=== PATIENT | male | born 1980 | race Caucasian/White ===

== ENCOUNTER 2019-05-31 19:20 | Emergency (ER) | payer OTHER ==
[~2019-05-31] VITALS: Ht 177.8 cm; Wt 107.9 kg
[2019-05-31 19:24] VITALS: BP 145/69; PULSE 88; RESP 20; Ht 177.8 cm; Wt 107.9 kg
[2019-05-31] MEDS ORDERED: LORA1TAB PO (20:11)
--- NOTE | 2019-05-31 21:11 | ERD ---
ER Documentation Chief Complaint Chief Complaint Pt reports hx of PTSD and meds are not working, Pt is HPI 38-year-old male with history of PTSD and anxiety presents for anxiety symptoms x3 days. States that he is getting frequent episodes of shortness of breath and feeling anxious which makes it difficult from sleep and work. Denies current chest pain. Denies abdominal pain, nausea, vomiting. He is on medication for his anxiety and PTSD however she does not know the name of the medications. He does have a psychiatrist that he goes through via the [place] but he does not have an appointment upcoming. No other modifying factors noted, no other treatments tried at home. Patient denies any suicidal or homicidal ideation. ROS All systems reviewed and are negative except as per history of present illness. Medications Home Meds Active Scripts Lorazepam* (Lorazepam*) 1 Mg Tablet, 1 MG PO Q8H PRN for ANXIETY, #10 TAB Prov:KEO GRANT DO 05/31/19 Allergies Allergies: Coded Allergies: No Known Allergy (Unverified , 05/31/19) PMhx/Soc History of GERD Hx Psychiatric Problems: Yes (PTSD and anxiety and depression) Hx Alcohol Use: Yes (Moderate use) Hx Substance Use: No Hx Tobacco Use: No Physical Exam Vitals Vital Signs Date Temp Pulse Resp B/P (MAP) Pulse Ox O2 O2 Flow FiO2 Time Delivery Rate 05/31/19 99.4 88 20 145/69 98 19:24 (94) Physical Exam Const: No acute distress Head: Atraumatic Eyes: Normal Conjunctiva ENT: Normal External Ears, Nose and Mouth. Neck: Full range of motion. No meningismus. Resp: Clear to auscultation bilaterally Cardio: Regular rate and rhythm, no murmurs Abd: Soft, non tender, non distended. Normal bowel sounds Skin: No petechiae or rashes Back: No midline or flank tenderness Ext: No cyanosis, or edema Neur: Awake and alert Psych: Normal Mood and Affect Procedures/MDM Medical Decision Making: Patient appeared well on physical exam. Physical examination normal ED course: Denies homicidal suicidal ideation Patient advised that you need to follow with his psychiatrist. Patient given a short course of Ativan low-dose short course Low suspicion for pulmonary embolism, aortic dissection, pneumothorax, ACS Patient advised to follow up with PCP in 1-2 days. Patient advised to return to ED for new or worsening symptoms. Patient stable on discharge from the ED. Disclaimer: Inadvertent spelling and grammatical errors are likely due to EHR/dictation software use and do not reflect on the overall quality of patient care. Also, please note that the electronic time recorded on this note does not necessarily reflect the actual time of the patient encounter. Departure Diagnosis: Primary Impression: Anxiety attack Condition: Fair Patient Instructions: Anxiety Reaction, Panic Attack Referrals: [facility] YOU HAVE RECEIVED A MEDICAL SCREENING EXAM AND THE RESULTS INDICATE THAT YOU DO NOT HAVE A CONDITION THAT REQUIRES URGENT TREATMENT IN THE EMERGENCY DEPARTMENT. FURTHER EVALUATION AND TREATMENT OF YOUR CONDITION CAN WAIT UNTIL YOU ARE SEEN IN YOUR DOCTORS OFFICE WITHIN THE NEXT 1-2 DAYS. IT IS YOUR RESPONSIBILITY TO MAKE AN APPOINTMENT FOR FOLOW-UP CARE. IF YOU HAVE A PRIMARY DOCTOR --you should call your primary doctor and schedule an appointment IF YOU DO NOT HAVE A PRIMARY DOCTOR YOU CAN CALL OUR PHYSICIAN REFERRAL HOTLINE AT IF YOU CAN NOT AFFORD TO SEE A PHYSICIAN YOU CAN CHOSE FROM THE FOLLOWING [facility] [address] [facility] [address] [facility] [facility] [address] [facility] [address] [facility] [facility] [address] [facility] [facility]. [address] Additional Instructions: Call your primary care doctor TOMORROW for an appointment during the next 1-2 days.See the doctor sooner or return here if your condition worsens before your appointment time. KEO GRANT DO May 31, 2019 21:11
== END 2019-05-31 20:18 | disposition home or self-care (01) ==
LOC: E/R 19:20
DX: F41.9 Anxiety disorder, unspecified (principal)
CPT/HCPCS: 99283